=== PATIENT | male | born 1990 ===

== ENCOUNTER 2019-12-14 13:49 | Emergency (ER) | payer SELFPAY ==
[2019-12-14 14:19] VITALS: BP 127/81
--- NOTE | 2019-12-14 16:41 | Event Note ---
ED Screening Note ED Screening Note: this morning slipped and fell landed on his hand has pain and edema never injured before right hand dominant This initial assessment/diagnostic orders/clinical plan/treatment(s) is/are subject to change based on patients health status, clinical progression and re- assessment by fellow clinical providers in the ED. Further treatment and workup at subsequent clinical providers discretion. Patient/guardian urged not to elope from the ED as their condition may be serious if not clinically assessed and managed. Initial orders include: xr right hand
--- NOTE | 2019-12-14 17:28 | XRay Report ---
RIGHT HAND 3 VIEWS INDICATION / CLINICAL INFORMATION: fall onto hand, right hand pain and edema COMPARISON: None available. FINDINGS: BONES / JOINT(S): No acute fracture or subluxation. No significant arthritis. SOFT TISSUES: No significant abnormality. ADDITIONAL FINDINGS: None. Signer Name: Yovani Cardenas MD Signed: 12/14/2019 5:24 PM Workstation Name: [id number]
== END 2019-12-14 21:25 | disposition left against medical advice (07) ==
LOC: ED 13:49
DX: M79.641 Pain in right hand (principal); Z53.21 Procedure and treatment not carried out due to patient leaving prior to being seen by health care provider

== ENCOUNTER 2020-01-07 04:50 | Emergency (ER) | payer SELFPAY ==
[2020-01-07] MEDS ORDERED: ASPIRIN 325 MG TAB PO ONE (04:55)
--- NOTE | 2020-01-07 05:27 | XRay Report ---
CHEST 1 VIEW INDICATION / CLINICAL INFORMATION: Chest Pain. COMPARISON: None available. FINDINGS: SUPPORT DEVICES: None. HEART / MEDIASTINUM: No significant abnormality. LUNGS / PLEURA: No significant pulmonary or pleural abnormality. No pneumothorax. ADDITIONAL FINDINGS: No significant additional findings. IMPRESSION: 1. No significant change Signer Name: Riley Muniz MD Signed: 01/07/2020 5:23 AM Workstation Name: [id number]
[2020-01-07 05:54] LABS: Basophils % (Auto) 0.7 % (0.0-1.8); Eosinophils # (Auto) 0.1 K/mm3 (0.0-0.4); Eosinophils % (Auto) 2.3 % (0.0-4.3); Hemoglobin 16.4 gm/dl (11.8-15.2); Lymphocytes # (Auto) 2.4 K/mm3 (1.2-5.4); Lymphocytes % (Auto) 43.5 % (13.4-35.0); Mean Corpuscular HGB Conc 35 % (32-34); Mean Corpuscular Volume 94 fl (84-94); Monocytes # (Auto) 0.6 K/mm3 (0.0-0.8); Monocytes % (Auto) 11.7 % (0.0-7.3); Red Cell Distribution Width 13.3 % (13.2-15.2)
[2020-01-07 05:58] LABS: Platelet Count 259 K/mm3 (140-440)
[2020-01-07 06:21] LABS: BUN/Creatinine Ratio 11; Blood Urea Nitrogen 13 mg/dL (9-20); Calcium 9.6 mg/dL (8.4-10.2); Hemolysis Index 8
[2020-01-07 07:01] VITALS: BP 121/83
== END 2020-01-07 09:01 | disposition left against medical advice (07) ==
LOC: ED 04:50
DX: R07.89 Other chest pain (principal); Z53.21 Procedure and treatment not carried out due to patient leaving prior to being seen by health care provider
CPT/HCPCS: 36415; 71045; 80048; 84484; 85025; 93005; 93010